=== PATIENT | male | born 1960 | race Asian ===

== ENCOUNTER 2020-10-21 03:11 | Emergency (ER) | payer SELFPAY ==
[~2020-10-21] VITALS: Ht 175.3 cm; Wt 54.9 kg
--- NOTE | 2020-10-21 03:31 | NUR ---
Pt bib RA 39 for vomiting blood. Pt has liver cancer, cirrhosis, and suspected hep b. hx esophageal varices (repaired w/ surgical banding) and gastric ulcers. Pt. 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 Pt. hypotensive and tachycardic. Pt. has abdominal pain w/ nausea. Pt. is DNR and supposed to go into hospice tomorrow. Pt. accompanied by friend who is involved in his care. Rescue put in 22g on L wrist and gave 1L bolus.
[2020-10-21] MEDS ORDERED: NALO4SPR NS (03:44)
[2020-10-21] MEDS ORDERED: METO-295 PO (03:44)
[2020-10-21] MEDS ORDERED: TENO300T9 PO (03:44)
[2020-10-21] MEDS ORDERED: GABA-532 PO (03:44)
[2020-10-21] MEDS ORDERED: LEVO25TA9 PO (03:44)
[2020-10-21] MEDS ORDERED: HYDR2TAB4 PO (03:44)
[2020-10-21] MEDS ORDERED: HYDR-501 PO (03:44)
[2020-10-21] MEDS ORDERED: ACET-2154 PO (03:44)
[2020-10-21] MEDS ORDERED: CIPR500T5 PO (03:44)
[2020-10-21] MEDS ORDERED: PANT40TA49 PO (03:44)
[2020-10-21] MEDS ORDERED: PROP10TA10 PO (03:44)
[2020-10-21] MEDS ORDERED: METR-147 PO (03:44)
[2020-10-21] MEDS ORDERED: PANTOPRAZOLE SODIUM IV 80 MG in IV DEXTROSE 5% 100 ML IV ONE (04:30)
[2020-10-21] MEDS ORDERED: KETAMINE HCL 500 MG/10 ML INJ IV ONE ×2 (04:30→05:45)
[2020-10-21] MEDS ORDERED: PANTOPRAZOLE SODIUM IV 80 MG in IV DEXTROSE 5% 500 ML IV ONE (04:30)
[2020-10-21] MEDS ORDERED: OCTREOTIDE ACETATE 50 MCG/1 ML ML SQ ONE (04:30)
--- NOTE | 2020-10-21 04:30 | NUR ---
Pt had 3 episodes of vomiting blood. Approx 1 cup of blood vomited.
[2020-10-21] MEDS ORDERED: KETAMINE HCL 500 MG/10 ML INJ ONE ×3 (04:36→06:07)
[2020-10-21] MEDS ORDERED: PANTOPRAZOLE SODIUM 40 MG VIAL ONE ×3 (04:57→05:47)
[2020-10-21] MEDS ORDERED: OCTREOTIDE ACETATE 500 MCG/1 ML VIAL ONE (04:58)
[2020-10-21] MEDS ORDERED: IV NS 1000 ML 1,000 ML IV ONE (05:00)
[2020-10-21] MEDS ORDERED: KETAMINE HCL 100 MG in IV NORMAL SALINE 100 ML IV ONE (05:00)
[2020-10-21] MEDS ORDERED: NOREPINEPHRINE BITARTRATE 4 MG/4 ML VIAL IV ONE (05:14)
[2020-10-21 05:30] VITALS: BP 90/51
[2020-10-21] MEDS: NOREPINEPHRINE BITARTRATE 8 MG in IV NORMAL SALINE 242 ML IV PRN ×2 (05:30→07:35)
--- NOTE | 2020-10-21 05:30 | NUR ---
Levophed started, 0.1 mcg/kg/min
[2020-10-21 05:33] LABS: MEAN CORPUSCULAR HEMOGLOBIN 32.2 uug (23.8-33.4); MEAN CORPUSCULAR VOLUME 101.3 fL (73.0-96.2); PLATELET COUNT (AUTO) 225 K/uL (152-348)
--- NOTE | 2020-10-21 05:45 | NUR ---
Levophed titrated up to 0.3 mcg/kg/min to maintain MAP>65 per MD.
[2020-10-21 05:56] LABS: HEMATOCRIT 13.7 % (36.7-47.1)
--- NOTE | 2020-10-21 06:00 | NUR ---
Levophed kept at 0.3 mcg/kg/min to maintain MAP>65 per MD.
[2020-10-21 06:11] LABS: BILIRUBIN,TOTAL 1.7 mg/dL (0.2-1.0); CREATININE 1.7 mg/dL (0.6-1.3); POTASSIUM 6.1 mmol/L (3.5-5.1); TOTAL PROTEIN, SERUM 5.4 g/dL (6.4-8.2)
--- NOTE | 2020-10-21 06:15 | NUR ---
Levophed running at 0.3 mcg/kg/min to maintain MAP>65 per MD.
--- NOTE | 2020-10-21 06:30 | NUR ---
Pts. BP rapidly declined from 94/57 to 47/31. Levophed titrated up to 1 mcg/kg/min to maintain MAP>65.
--- NOTE | 2020-10-21 06:32 | NUR ---
Pt. has agonal breathing and rapid blood pressure decline. Dr. Medina spoke with the pt.'s advocate regarding the plan of care for the pt. Comfort measures only for the pt. from this time forward. Levophed and protonix drip stopped.
[2020-10-21 06:45] LABS: BAND % (MANUAL) 7 % (0-10); LYMPHOCYTES % (MANUAL) 17 % (20-40); MONOCYTES % (MANUAL) 4 % (2-10); NEUTROPHILS % (MANUAL) 72 % (42-75)
[2020-10-21] MEDS ORDERED: ONDANSETRON 4 MG/2 ML VIAL IV ONE ×2 (06:45→07:30)
[2020-10-21] MEDS ORDERED: MORPHINE SULFATE 4 MG/1 ML DISP.SYRIN IV ONE (06:45)
[2020-10-21] MEDS ORDERED: ONDANSETRON 4 MG/2 ML VIAL ONE ×2 (06:55→07:10)
[2020-10-21] MEDS ORDERED: MORPHINE SULFATE 4 MG/1 ML DISP.SYRIN ONE (06:55)
[2020-10-21] MEDS ORDERED: HYDROMORPHONE 1 MG/1 ML DISP.SYRIN ONE (07:09)
[2020-10-21] MEDS ORDERED: HYDROMORPHONE 1 MG/1 ML DISP.SYRIN IV ONE (07:30)
--- NOTE | 2020-10-21 07:51 | NUR ---
Per Dr. Viramontes time of was [id number].
--- NOTE | 2020-10-21 08:00 | NUR ---
Post-mortem care provided.
--- NOTE | 2020-10-21 08:02 | NUR ---
Called [facility], spoke with Rowena, requested information provided, case# [id number].
== END 2020-10-21 09:37 ==
LOC: ER 03:17
DX: C22.8 Malignant neoplasm of liver, primary, unspecified as to type (principal); I46.8 Cardiac arrest due to other underlying condition; K92.0 Hematemesis; Z66 Do not resuscitate; K21.9 Gastro-esophageal reflux disease without esophagitis; D64.9 Anemia, unspecified; Z79.899 Other long term (current) drug therapy; R64 Cachexia; Z68.1 Body mass index [BMI] 19.9 or less, adult; D68.9 Coagulation defect, unspecified
CPT/HCPCS: 36415; 80048; 80076; 83605; 83690; 84484; 85007; 85025; 85730; 86850; 86900; 86901; 86920; 87040 ×2; 93005 ×2; 96365; 96372; 96374; 96375; 99291; C9113 ×3; J1170; J2270; J2354; J2405 ×2; J3490 ×3; J7060 ×2; 70030-TC; J7050; P9016; P9021